=== PATIENT | male | born 1940 | race Caucasian/White ===

== ENCOUNTER → 2016-11-26 | Outpatient (CLI) | payer MEDICARE, MEDICAID | END | disposition home or self-care (01) | LOC: RADPV 09:06 | PROVIDERS: ATTEND Legal Medicine | DX: J32.8 Other chronic sinusitis (principal); R91.8 Other nonspecific abnormal finding of lung field; I70.0 Atherosclerosis of aorta; I25.10 Atherosclerotic heart disease of native coronary artery without angina pectoris; I51.7 Cardiomegaly; M89.8X8 Other specified disorders of bone, other site | CPT/HCPCS: 70220; 71020 ==

== ENCOUNTER → 2017-04-28 | Outpatient (CLI) | payer MEDICARE, MEDICAID | END | disposition home or self-care (01) | LOC: RADPV 08:02 | PROVIDERS: ATTEND Legal Medicine | DX: R05 Cough (principal); I51.7 Cardiomegaly | CPT/HCPCS: 71046 ==

== ENCOUNTER 2018-11-04 16:40 | Inpatient (IN) | payer MEDICARE, MEDICAID ==
[~2018-11-04] VITALS: Ht 177.8 cm; Wt 87.3 kg
[2018-11-04] MEDS ORDERED: QUET25TA PO (17:01)
[2018-11-04] MEDS ORDERED: CLOP75TA3 PO (17:01)
[2018-11-04] MEDS ORDERED: THIO300C PO (17:01)
[2018-11-04] MEDS ORDERED: CETI10TA59 PO (17:01)
[2018-11-04] MEDS ORDERED: SERT100T12 PO (17:01)
[2018-11-04] MEDS ORDERED: SENN-106 PO (17:01)
[2018-11-04] MEDS ORDERED: ATOR10TA84 PO (17:01)
[2018-11-04] MEDS ORDERED: FAMO20 PO (17:01)
[2018-11-04] MEDS ORDERED: VITAD1000 PO (17:01)
[2018-11-04] MEDS ORDERED: CARV6 PO (17:01)
[2018-11-04] MEDS ORDERED: BENA5TAB26 PO (17:01)
[2018-11-04] MEDS ORDERED: TAMS-1 PO (17:01)
[2018-11-04 17:29] LABS: BASOPHILS % (AUTO) 0.1 % (0.0-2.0); EOSINOPHILS % (AUTO) 0.6 % (1.0-6.0); HEMATOCRIT 37.9 % (41-53); HEMOGLOBIN 12.5 g/dL (13.5-17.5); LYMPHOCYTES # (AUTO) 0.6 K/uL (1.0-4.8); LYMPHOCYTES % (AUTO) 4.7 % (22.0-44.0); MEAN CORPUSCULAR HEMOGLOBIN 32.4 pg (26.0-34.0); MEAN CORPUSCULAR VOLUME 98 fL (80-100); MONOCYTES % (AUTO) 7.5 % (2.0-9.0); NEUTROPHILS # (AUTO) 11.5 K/uL (1.8-7.7); PLATELET COUNT (AUTO) 143 K/uL (150-450); RED BLOOD CELL COUNT(AUTO) 3.85 MIL/uL (4.50-5.90); RED CELL DISTRIBUTION WIDTH 13.3 % (11.5-14.5)
[2018-11-04 17:36] LABS: NEUTROPHILS % (AUTO) 87.1 % (40.0-70.0)
[2018-11-04 17:59] LABS: CALCIUM, TOTAL 9.1 mg/dL (8.8-10.5); CREATININE 1.47 mg/dL (0.60-1.30)
[2018-11-04 18:06] LABS: ALBUMIN 3.2 g/dL (3.4-5.0); BILIRUBIN,TOTAL 1.3 mg/dL (0.1-1.0); TOTAL PROTEIN, SERUM 6.9 g/dL (6.4-8.2)
[2018-11-04] MEDS ORDERED: SODIUM CHLORIDE 0.9% 1,000 ML IV ONE (21:45)
[2018-11-04] MEDS ORDERED: ONDANSETRON HCL 4 MG/2 ML VIAL IVP ONE (21:45)
[2018-11-04 21:57] LABS: APPEARANCE,URINE CLEAR (CLEAR); GLUCOSE, URINE (UA) NEGATIVE (NEGATIVE); KETONES,URINE 15 mg/dL (NEGATIVE); LEUKOCYTE ESTERASE ,URINE NEGATIVE (NEGATIVE); NITRATE,URINE NEGATIVE (NEGATIVE); OCCULT BLOOD,URINE SMALL (NEGATIVE); PROTEIN,URINE POS 1+ (NEGATIVE)
[2018-11-04 22:05] LABS: BILIRUBIN,URINE PRELIM. POSITIVE (NEGATIVE)
[2018-11-04 22:09] LABS: BACTERIA,URINE Rare /HPF (None Seen); RBC,URINE 0-2 /HPF (0-2); SQUAMOUS EPITHELIAL CELL,UR Rare /LPF (None Seen); WBC,URINE 0-2 /HPF (0-5)
[2018-11-04] MEDS ORDERED: 0.9% SODIUM CHLORIDE 10 ML SYRINGE IVP PRN (23:15)
[2018-11-04] MEDS ORDERED: ONDANSETRON HCL 4 MG/2 ML VIAL IVP PRN (23:15)
[2018-11-04] MEDS ORDERED: ACETAMINOPHEN 325 MG TABLET PO PRN (23:15)
[2018-11-05] VITALS (7 sets, daily range): BP systolic 102–127; BP diastolic 52–77
[2018-11-05] MEDS ORDERED: MAGNESIUM HYDROXIDE SUSPENSION 30 ML UDCUP PO PRN
[2018-11-05] MEDS ORDERED: ZOLPIDEM TARTRATE 5 MG TABLET PO PRN
[2018-11-05] MEDS ORDERED: ONDANSETRON HCL 4 MG/2 ML VIAL IVP PRN
[2018-11-05] MEDS ORDERED: IPRATROPIUM BROMIDE 0.5 MG/2.5 ML NEB SOLUTION NEB PRN
[2018-11-05] MEDS ORDERED: ALBUTEROL SULFATE 2.5 MG/0.5 ML NEB SOLUTION NEB PRN
[2018-11-05] MEDS: SODIUM CHLORIDE 0.45% 1,000 ML IV SCH ×2 (01:12→14:52)
[2018-11-05 06:40] LABS: BASOPHILS % (AUTO) 0.2 % (0.0-2.0); EOSINOPHILS % (AUTO) 0.1 % (1.0-6.0); HEMATOCRIT 32.7 % (41-53); HEMOGLOBIN 11.6 g/dL (13.5-17.5); LYMPHOCYTES # (AUTO) 0.8 K/uL (1.0-4.8); LYMPHOCYTES % (AUTO) 8.6 % (22.0-44.0); MEAN CORPUSCULAR HEMOGLOBIN 34.6 pg (26.0-34.0); MEAN CORPUSCULAR HGB CONC 35.4 G/dL (31.0-37.0); MEAN CORPUSCULAR VOLUME 98 fL (80-100); MONOCYTES % (AUTO) 9.8 % (2.0-9.0); NEUTROPHILS # (AUTO) 7.9 K/uL (1.8-7.7); NEUTROPHILS % (AUTO) 81.3 % (40.0-70.0); PLATELET COUNT (AUTO) 122 K/uL (150-450); RED BLOOD CELL COUNT(AUTO) 3.34 MIL/uL (4.50-5.90); RED CELL DISTRIBUTION WIDTH 13.5 % (11.5-14.5)
[2018-11-05 06:42] LABS: HEMOGLOBIN A1C 6.2 % (4.5-6.2)
[2018-11-05 07:24] LABS: ALBUMIN 2.7 g/dL (3.4-5.0); BILIRUBIN,TOTAL 0.9 mg/dL (0.1-1.0); CALCIUM, TOTAL 8.5 mg/dL (8.8-10.5); CHOL/HDL RATIO 2.1 (4.2-7.3); CREATININE 1.37 mg/dL (0.60-1.30); FREE T4 (FREE THYROXINE) 0.95 ng/dL (0.76-1.46); MAGNESIUM 1.8 mg/dL (1.80-2.40); THYROID STIMULATING HORMONE 1.34 uIU/mL (0.36-3.74)
[2018-11-05] MEDS: HEPARIN SODIUM,PORCINE 5,000 UNITS/ML VIAL SQ SCH ×2 (09:17→20:38)
[2018-11-05] MEDS: PANTOPRAZOLE SODIUM 40 MG DR TABLET PO SCH (09:17)
[2018-11-05] MEDS: CHOLECALCIFEROL (VIT D3) 1,000 UNITS TABLET PO SCH (09:17)
[2018-11-05] MEDS: SENNA/DOCUSATE SODIUM 8.6-50 MG TABLET PO SCH ×2 (09:17→20:38)
[2018-11-05] MEDS: TAMSULOSIN HCL 0.4 MG CAPSULE PO SCH (09:17)
[2018-11-05] MEDS: CETIRIZINE HCL 10 MG TABLET PO SCH (09:18)
[2018-11-05] MEDS: SERTRALINE HCL 100 MG TABLET PO SCH (09:18)
[2018-11-05] MEDS: QUEtiapine FUMARATE 25 MG TABLET PO SCH (11:53)
[2018-11-05 13:16] LABS: CREATININE,URINE RANDOM 21.7 mg/dL (30.0-125.0); SODIUM,URINE RANDOM 23 mmol/l (20-110); UREA NITROGEN,URINE RANDOM 317 mg/dL (350-1000)
[2018-11-05 13:18] LABS: PROTEIN,URINE RANDOM < 6 mg/dL (0-11.9)
[2018-11-05] MEDS ORDERED: ATORVASTATIN CALCIUM 10 MG TABLET PO SCH (21:00)
[2018-11-05] MEDS ORDERED: GuaiFENesin/CODEINE [SUGAR FREE] 200-20MG/10 ML SYRUP UDCUP PO PRN (23:00)
[2018-11-06 04:40] VITALS: BP 127/79
[2018-11-06] MEDS: GuaiFENesin/D-METHORPHAN [SUGAR-FREE] 200-20MG/10 ML SYRUP UDCUP PO PRN ×3 (04:52→15:07)
[2018-11-06] MEDS: SODIUM CHLORIDE 0.45% 1,000 ML IV SCH (04:52)
[2018-11-06 07:20] VITALS: BP 110/71
[2018-11-06] MEDS: PANTOPRAZOLE SODIUM 40 MG DR TABLET PO SCH (08:55)
[2018-11-06] MEDS: CHOLECALCIFEROL (VIT D3) 1,000 UNITS TABLET PO SCH (08:55)
[2018-11-06] MEDS: HEPARIN SODIUM,PORCINE 5,000 UNITS/ML VIAL SQ SCH (08:55)
[2018-11-06] MEDS: SERTRALINE HCL 100 MG TABLET PO SCH (08:56)
[2018-11-06] MEDS: QUEtiapine FUMARATE 25 MG TABLET PO SCH (08:56)
[2018-11-06] MEDS: SENNA/DOCUSATE SODIUM 8.6-50 MG TABLET PO SCH (08:56)
[2018-11-06] MEDS: CETIRIZINE HCL 10 MG TABLET PO SCH (08:56)
[2018-11-06] MEDS: TAMSULOSIN HCL 0.4 MG CAPSULE PO SCH (08:56)
[2018-11-06 12:12] VITALS: BP 121/60
[2018-11-06 15:09] VITALS: BP 104/59
== END 2018-11-06 16:45 | disposition home or self-care (01) | DRG 683 ==
LOC: EMS 16:44 → 5S 23:30
PROVIDERS: ADMIT Internal Medicine Geriatric Medicine; ATTEND Internal Medicine Geriatric Medicine
DX: N17.9 Acute kidney failure, unspecified (principal); I13.0 Hypertensive heart and chronic kidney disease with heart failure and stage 1 through stage 4 chronic kidney disease, or unspecified chronic kidney disease; K29.00 Acute gastritis without bleeding; E86.0 Dehydration; N18.9 Chronic kidney disease, unspecified; E78.5 Hyperlipidemia, unspecified; N40.0 Benign prostatic hyperplasia without lower urinary tract symptoms; J30.9 Allergic rhinitis, unspecified; I25.10 Atherosclerotic heart disease of native coronary artery without angina pectoris; D64.9 Anemia, unspecified; D69.6 Thrombocytopenia, unspecified; I50.9 Heart failure, unspecified; H91.90 Unspecified hearing loss, unspecified ear; F29 Unspecified psychosis not due to a substance or known physiological condition; F32.9 Major depressive disorder, single episode, unspecified; E11.22 Type 2 diabetes mellitus with diabetic chronic kidney disease; H54.8 Legal blindness, as defined in USA; E78.00 Pure hypercholesterolemia, unspecified; F03.90 Unspecified dementia, unspecified severity, without behavioral disturbance, psychotic disturbance, mood disturbance, and anxiety; K21.9 Gastro-esophageal reflux disease without esophagitis; M81.0 Age-related osteoporosis without current pathological fracture; N28.89 Other specified disorders of kidney and ureter; N32.89 Other specified disorders of bladder; Z88.1 Allergy status to other antibiotic agents; Z85.46 Personal history of malignant neoplasm of prostate; Z95.5 Presence of coronary angioplasty implant and graft
CPT/HCPCS: 74176; 76700; 80074; 82270; 82570; 83036; 83605; 83735; 84156; 84300; 84439; 84443; 84540; 93005; 93306; G0378; J1644; J2405; J7030

== ENCOUNTER → 2020-09-20 | Outpatient (CLI) | payer MEDICARE, MEDICAID ==
[~2020-09-20] MED LIST: ATOR10TA84 PO; BENA5TAB26 PO; CARV6 PO; CETI-450 PO; CHOL100018 PO; CLOP75TA60 PO; FAMO20 PO; QUET25TA PO; SENN-106 PO; SERT-162 PO; TAMS-1 PO; THIO300C PO
== END | disposition home or self-care (01) ==
LOC: RADPV 13:17
PROVIDERS: ATTEND Legal Medicine
DX: I08.0 Rheumatic disorders of both mitral and aortic valves (principal); I25.10 Atherosclerotic heart disease of native coronary artery without angina pectoris
CPT/HCPCS: 93306

== ENCOUNTER → 2022-11-26 | Outpatient (CLI) | payer MEDICARE, MEDICAID ==
[~2022-11-26] MED LIST changes: +ATOR10TA PO; -ATOR10TA84 PO; -BENA5TAB26 PO; +BENA5TAB48 PO
== END | disposition home or self-care (01) ==
LOC: RADPV 13:40
PROVIDERS: ATTEND Internal Medicine Cardiovascular Disease
DX: I51.7 Cardiomegaly (principal); I42.9 Cardiomyopathy, unspecified
CPT/HCPCS: 93306